=== PATIENT | male | born 1930 | race Caucasian/White ===

== ENCOUNTER → 2017-08-06 | Outpatient (CLI) | payer OTHER, MEDICARE ==
[~2017-08-06] MED LIST: ADVAIR HFA115 MCG/21 INH; ASPIR 8181 MG; CARDURA8 MG PO; CIPRO500 MG PO; CLONIDINE PO; COLACE100 MG PO; DUONEB 2.5-0.5 M3 ML INH; FLAGYL500 MG PO; HYDROCHLOROTH12.5 M1 PO; HYDROCODONE-AP1 EAC6 PO; IMDUR 30 MG TAB30 M1 PO; LISINOPRIL20 MG PO; LOVASTAT10 PO; MULTIVITAMINS PO; NORVASC10 MG PO; OMEPRAZOLE 20 M20 M1 PO; PRINZIDE 20-121 EACH PO; SAW PALMETTO C1 EACH PO; SAW PALMETTO160 MG PO; TEARS NATURALE1 EACH OPHTHALMIC; TYLENOL325 MG PO; VITAMIN C + RO500 MG PO
== END ==
LOC: RAD 09:39
DX: J98.11 Atelectasis (principal); R91.8 Other nonspecific abnormal finding of lung field; M47.894 Other spondylosis, thoracic region; M41.84 Other forms of scoliosis, thoracic region

== ENCOUNTER 2018-02-19 12:36 | Inpatient (IN) | payer OTHER, MEDICARE ==
[~2018-02-19] VITALS: Ht 165.1 cm; Wt 83.5 kg
--- NOTE | ~2018-02-19 | EKG ---
[address] [place] [address] ELECTROCARDIOGRAM REPORT Name: ADITHYA JIMENEZ Room #: 450-P ADM IN M.R.#: [id number] Admission: 02/19/18 Attend Phys: Ilia Camarillo MD Discharge: Date of : [birth year] Report #: [id number] THIS REPORT FOR: //name// [facility] ED Test Date: 2018-02-19 Test Time: 13:40:00 Pat Name: ADITHYA JIMENEZ Department: Room: 450 Gender: M Machine Engineer: KFRIEDT : 1930 Requested By: Dilip Mcmanus Order Number: [id number] MD: Ruddy Pagan Measurements Intervals [place] Rate: 60 P: 22 NE: 63 QRS: -17 QRSD: 94 T: 42 QT: 428 QTc: 428 Interpretive Statements Sinus rhythm Normal tracing Compared to ECG 12/12/2014 11:42:31 Short NE interval now present Low QRS voltage now present Wandering atrial pacemaker no longer present Ventricular premature complex(es) no longer present Electronically Signed On 02-20-2018 8:38:02 ENVIRONMENTAL HEALTH SAFETY ENGINEER by Ruddy Pagan [email or web address] <ELECTRONICALLY SIGNED> By: Ruddy Pagan MD, [facility] 02/20/18 0838 1340 1340 Ruddy Pagan MD, [facility] /EPI
[2018-02-19 12:36] VITALS: BP 136/67
[2018-02-19 13:23] LABS: BASOPHILS 1.4 % (0.0-2.0); EOSINOPHILS 3.5 % (0.0-3.0); HEMATOCRIT 37.9 % (42.0-52.0); HEMOGLOBIN 12.8 gm/dL (14.0-18.0); LYMPHOCYTES 23.5 % (24.0-44.0); MCH 30.8 pg (26.0-34.0); MCHC 33.8 g/dL (28.0-37.0); MONOCYTES 8.3 % (1.0-8.0); PLATELET COUNT 279 thou/uL (150-400); POLYS 63.3 % (36.0-66.0); RBC 4.16 mil/uL (4.50-6.00); RDW 14.5 % (10.5-14.5); WBC 7.9 thou/uL (4.0-11.0)
[2018-02-19 13:27] LABS: CALCIUM 9.2 mg/dL (8.5-10.1); CREATININE 1.2 mg/dL (0.7-1.3); POTASSIUM 4.2 mmol/L (3.5-5.1)
[2018-02-19 14:56] LABS: URINE BILIRUBIN NEGATIVE (Negative); URINE BLOOD NEGATIVE (Negative); URINE CLARITY CLEAR; URINE COLOR YELLOW; URINE GLUCOSE-RANDOM* NEGATIVE (Negative); URINE KETONES NEGATIVE (Negative); URINE LEUKOCYTES-REFLEX NEGATIVE (Negative); URINE NITRITE-REFLEX NEGATIVE (Negative); URINE PROTEIN (DIPSTICK) NEGATIVE (Negative); URINE SPECIFIC GRAVITY 1.015 (1.005-1.035); URINE UROBILINOGEN 0.2 E.U./dl (0.2-1.0)
[2018-02-19 15:55] VITALS: BP 138/74
[2018-02-19 15:58] VITALS: BP 147/74
[2018-02-19 16:35] VITALS: BP 152/79
[2018-02-19] MEDS ORDERED: PROAIR HFA8.5 GM INH (17:14)
[2018-02-19] MEDS ORDERED: SAW PALMETTO160 MG PO (17:17)
[2018-02-19 19:00] VITALS: BP 121/66
[2018-02-20 03:42] VITALS: BP 176/83
[2018-02-20 05:47] LABS: ABSOLUTE NEUTROPHILS 5.5 thou/uL (1.4-8.2); BASOPHILS 0.6 % (0.0-2.0); EOSINOPHILS 0.3 % (0.0-3.0); HEMATOCRIT 38.1 % (42.0-52.0); HEMOGLOBIN 12.7 gm/dL (14.0-18.0); LYMPHOCYTES 9.7 % (24.0-44.0); MCH 30.6 pg (26.0-34.0); MCHC 33.5 g/dL (28.0-37.0); MCV 91.5 fL (80.0-100.0); MONOCYTES 1.4 % (1.0-8.0); PLATELET COUNT 258 thou/uL (150-400); RBC 4.16 mil/uL (4.50-6.00); RDW 14.7 % (10.5-14.5); WBC 6.2 thou/uL (4.0-11.0)
[2018-02-20 05:59] LABS: CALCIUM 9.2 mg/dL (8.5-10.1); CREATININE 1.2 mg/dL (0.7-1.3); MAGNESIUM 1.9 mg/dL (1.8-2.4); POTASSIUM 4.4 mmol/L (3.5-5.1)
[2018-02-20 17:35] VITALS: BP 155/78
[2018-02-20 19:09] VITALS: BP 156/78
[2018-02-21 05:18] VITALS: BP 160/71
[2018-02-21 07:40] VITALS: BP 171/89
[2018-02-21] MEDS ORDERED: ROBAXIN 750 MG750 M1 PO (12:06)
[2018-02-21] MEDS ORDERED: GABAPENTIN 100100 MG PO (12:07)
[2018-02-21] MEDS ORDERED: HYDROCODONE-AP1 EAC6 PO (12:07)
[2018-02-21] MEDS ORDERED: PREDNISONE 10 M10 M1 PO (12:08)
[2018-02-21 12:17] VITALS: BP 171/89
== END 2018-02-21 14:54 | disposition home or self-care (01) | DRG 552 ==
LOC: ER 12:36 → 4W 15:14 → EROBS 15:14 → 4W 16:03
PROVIDERS: Nurse Practitioner; Physician Assistant
DX: M48.061 Spinal stenosis, lumbar region without neurogenic claudication (principal); M54.16 Radiculopathy, lumbar region; E78.00 Pure hypercholesterolemia, unspecified; I10 Essential (primary) hypertension; J44.9 Chronic obstructive pulmonary disease, unspecified; E78.5 Hyperlipidemia, unspecified; I48.2 Chronic atrial fibrillation; G89.29 Other chronic pain; M54.2 Cervicalgia; M51.36 Other intervertebral disc degeneration, lumbar region; G62.9 Polyneuropathy, unspecified; K21.9 Gastro-esophageal reflux disease without esophagitis; N40.0 Benign prostatic hyperplasia without lower urinary tract symptoms; R29.6 Repeated falls; M19.90 Unspecified osteoarthritis, unspecified site; Z96.652 Presence of left artificial knee joint; Z86.73 Personal history of transient ischemic attack (TIA), and cerebral infarction without residual deficits; Z88.0 Allergy status to penicillin; Z87.891 Personal history of nicotine dependence
CPT/HCPCS: 10045; 10047

== ENCOUNTER → 2018-03-06 | Outpatient (CLI) | payer OTHER, MEDICARE ==
[~2018-03-06] MED LIST changes: +GABAPENTIN 100100 MG PO; +PREDNISONE 10 M10 M1 PO; +PROAIR HFA8.5 GM INH; +ROBAXIN 750 MG750 M1 PO
== END ==
LOC: LABMALL 12:35 → CAT 12:35
DX: M47.12 Other spondylosis with myelopathy, cervical region (principal); M25.78 Osteophyte, vertebrae; M43.12 Spondylolisthesis, cervical region; M48.02 Spinal stenosis, cervical region

== ENCOUNTER 2018-03-23 15:58 | Inpatient (IN) | payer OTHER, MEDICARE ==
[~2018-03-23] VITALS: Ht 152.4 cm; Wt 82.6 kg
[2018-03-23 15:59] VITALS: BP 101/52
[2018-03-23] MEDS ORDERED: ASPIR 8181 MG PO (16:12)
[2018-03-23] MEDS ORDERED: CARDURA4 MG PO (16:22)
[2018-03-23 16:58] LABS: ABSOLUTE NEUTROPHILS 6.6 thou/uL (1.4-8.2); BASOPHILS 0.7 % (0.0-2.0); EOSINOPHILS 2.7 % (0.0-3.0); HEMATOCRIT 34.6 % (42.0-52.0); HEMOGLOBIN 11.8 gm/dL (14.0-18.0); LYMPHOCYTES 13.5 % (24.0-44.0); MCHC 34.3 g/dL (28.0-37.0); MCV 90.5 fL (80.0-100.0); MONOCYTES 11.7 % (1.0-8.0); PLATELET COUNT 275 thou/uL (150-400); POLYS 71.4 % (36.0-66.0); RBC 3.82 mil/uL (4.50-6.00); WBC 9.2 thou/uL (4.0-11.0)
[2018-03-23 17:04] LABS: ANION GAP 6 mmol/L (7-16); BUN 21 mg/dL (7-18); CALCIUM 8.9 mg/dL (8.5-10.1); CHLORIDE 96 mmol/L (98-107); CO2 30 mmol/L (21-32); CREATININE 1.2 mg/dL (0.7-1.3); GLUCOSE 109 mg/dL (74-106); POTASSIUM 3.9 mmol/L (3.5-5.1); SODIUM 132 mmol/L (136-145)
[2018-03-23 17:12] LABS: ALBUMIN 3.2 g/dL (3.4-5.0); SGOT 26 U/L (15-37); SGPT 22 U/L (30-65); TOTAL BILIRUBIN 0.5 mg/dL (<0.1-1.0); TOTAL PROTEIN 5.9 g/dL (6.4-8.2); TROPONIN-I <0.06 ng/mL (<0.06)
[2018-03-23 17:42] LABS: URINE CLARITY CLEAR; URINE COLOR YELLOW
[2018-03-23 17:43] LABS: URINE BILIRUBIN NEGATIVE (Negative); URINE BLOOD NEGATIVE (Negative); URINE GLUCOSE-RANDOM* NEGATIVE (Negative); URINE KETONES NEGATIVE (Negative); URINE LEUKOCYTES-REFLEX NEGATIVE (Negative); URINE NITRITE-REFLEX NEGATIVE (Negative); URINE PROTEIN (DIPSTICK) NEGATIVE (Negative); URINE UROBILINOGEN 0.2 E.U./dl (0.2-1.0)
[2018-03-23] MEDS ORDERED: ZESTORETIC 20-1 EAC3 PO (18:03)
[2018-03-23] MEDS ORDERED: LOVASTAT10 PO (18:04)
[2018-03-23] MEDS ORDERED: VITAMINC500 PO (18:05)
[2018-03-23] MEDS ORDERED: STIOLTO RESPIMAT4 GM INH (18:07)
[2018-03-23] MEDS ORDERED: CLONIDINE0.1 PO (18:08)
[2018-03-23] MEDS ORDERED: TRAMADOL 50 MG50 MG PO (18:19)
[2018-03-23] MEDS ORDERED: SYNTHROID50 MCG PO (18:22)
--- NOTE | 2018-03-23 18:42 | NUR ---
PT'S DAUGHTER REPORTS THAT PT HAS BECOME MORE WEAK IN THE LEGS SINCE . DAUGHTER REPORTS THAT PT IS ABLE TO WALK A FEW STEPS THEN HAS TO SIT DOWN DUE TO WEAKNESS. DAUGHTER REPORTS THAT PT FALLS BACK INTO HER WHEN WALKING TO THE BATHROOM. PT AND DAUGHTER HAVE REPORTED INCREASED URINARY INCONTINENCE THAT HAS BECOME MORE BOTHERSOME. PT STATES THAT UROLOGIST WAS NOT ABLE TO GIVE THEM A SATISFACTORY SOLUTION TO THE URINARY FREQUENCY OR INCONTINENCE. DAUGHTER IS REQUESTING TO HAVE A ETIENNE CATHETER BEING PERMANETLY PLACED. EXPLAINED THE REASONS WHY THAT IS DISCOURAGED. PT AND FAMILY NEED MORE TEACHING ON THIS. DAUGHTER DOES NOT WANT PT TO GO INTO THE LONGTERM, SO SHE AND PT'S HAVE BEEN DOING ALL THE PT'S CARE AT HOME. HOME HEALTH IS TO START COMING TO THEIR HOME ON FRIDAY.
[2018-03-23 19:29] VITALS: BP 146/71
[2018-03-23 20:26] VITALS: BP 157/76
--- NOTE | 2018-03-24 01:58 | NUR ---
PATIENTS CARES WERE ASSUMED AT APPROX 2030. PATIENT WAS ASSESSED MEDS WERE PASSED AND ORDERS WERE CARRIED OUT. PATIENT DOES C/O KNEE AND NECK PAIN AND RATES IT 8/10. PAIN MEDS WERE GIVEN. PT AND OT CONSULTS TO ASSESS THIS PATIENT. HE LIVES AT HOME WITH HIS AND DAUGHTER. HE IS UNABLE TO FEED HIMSELF DUE TO NO FEELINGS IN HIS HANDS AND FINGERS. UNABLE TO GET TO THE BATHROOM FAST ENOUGH DUE TO HIS PAINFUL LEGS. FAMILY CALLED AFTER PATIENT GOT TO THE FLOOR AND WAS ADMITTED. THEY ARE NOT HAPPY BECAUSSE THEY BROUGHT HIM HERE TO HAVE A ETIENNE PLACED AND BRING HIM BACK HOME. CONSULT PLACED FOR AVIONICS MANAGER FOR PLACEMENT,HOWEVER FAMILY DOES NOT WANT TO PLACE HIM THEY WANT HIM BACK AT HOME. HOURLY ROUNDING DON,BED IS IN LOWLOCKED POSITION. BED ALARM IS ON. IS ON.
[2018-03-24 03:31] VITALS: BP 168/87
[2018-03-24 03:58] LABS: CALCIUM 8.7 mg/dL (8.5-10.1)
[2018-03-24 08:20] VITALS: BP 144/68
--- NOTE | 2018-03-24 08:36 | EKG ---
[address] [address] ELECTROCARDIOGRAM REPORT Name: ADITHYA JIMENEZ Room #: 462-P [facility] M.R.#: [id number] Admission: 03/23/18 Attend Phys: Paulo Dueñas MD Discharge: Date of : [birth year] Report #: [id number] THIS REPORT FOR: //name// [facility] ED Test Date: 2018-03-23 Test Time: 16:56:39 Pat Name: ADITHYA JIMENEZ Department: Room: 462 Gender: M Steam Plant Control Room Operator: earnest : 1930 Requested By: Adrian Freire Order Number: [id number] MD: Ruddy Pagan Measurements Intervals [place] Rate: 62 P: 39 [place]: 203 QRS: -23 QRSD: 94 T: 48 QT: 409 QTc: 416 Interpretive Statements Sinus rhythm Inferior infarct, old Compared to ECG 02/19/2018 13:40:00 No significant change was found Electronically Signed On 03-24-2018 8:36:08 DESKTOP OPERATOR by Ruddy Pagan [email or web address] <ELECTRONICALLY SIGNED> By: Ruddy Pagan MD, [facility] 03/24/18 0836 1656 55 Ruddy Pagan MD, [facility] /EPI
--- NOTE | 2018-03-24 10:32 | NUR ---
cm visited with pt at bedside, nurse reposition pt in bed. cecilia is a & o x 3 with forgetfullness, pleasant, makes his needs know . intro to cm dcp, transition of care and home health. " just tired and going to home,that is want in er told me. my daughter felipe is my nurse at home. live in house with and daughter, have steps to enter and stairs inside. use walker and now need to use wc because knees are weak. manage own medication. not driving. rest better at home, this bed is uncomfortable and slide down all the time. working on private duty and have [facility] home health, by daughter sets it up. i will be going home"/pt. cm and television inspector reposition pt again in bed with legs raise and hob up. will cont following as needed for dc needs. referral sent to [facility]. cm tried calling and daughter, unable to leave message rt mail box is full.
--- NOTE | 2018-03-24 11:07 | NUR ---
DP FAXED REFERRAL TO [facility], PATIENT LIKELY TO DC TODAY SO HE WILL NEED TO BE SEEN TOMORROW. DP WILL CALL TO ENSURE DELIVERY OF REFERRAL. CM WILL FOLLOW.
[2018-03-24] MEDS ORDERED: A THRU Z SELEC1 EAC6 PO (12:44)
[2018-03-24] MEDS ORDERED: CARDURA4 MG PO (12:44)
[2018-03-24] MEDS ORDERED: ROBAXIN 750 MG750 M1 PO (12:44)
[2018-03-24] MEDS ORDERED: FLOMAX0.4 MG PO (12:44)
[2018-03-24 14:18] VITALS: BP 144/68
--- NOTE | 2018-03-24 14:40 | NUR ---
CM CALLED [facility] AND INQUIRED ABOUT PT'S HOME HEALTH SERVICES. THEY INDICATED THAT PT HAD PT AND OT AND WAS CURRENT WITH THEM. CM INDICATED THAT PHYSICIAN WAS ORDERING PT, OT, ST, AND NURSING HH SERVICES FOR PT'S DC TODAY. THEY INDICATED THAT PT WAS SECHEDULED FOR PT TOMORROW AND THAT THEY WOULD ASSESS FOR ADDITIONAL SERVICES THEN. PT IS TO DISCHARGE WITH THE ETIENNE CATHETER. SHELLEY CALLED AND SPOKE WITH PT'S DTR PRISCILA. SHE IS AWARE AND AGREEABLE WITH DC HOME THIS DAY. SHE INDICATED THAT SHE AND HER MOTHER WILL PICK PT UP THIS AFTERNOON AND WILL CALL [facility] TO TRANPORT PT INTO THE HOME. CM FA[facility]ED ORDERS TO [facility]. NO OTHER CM INTERVENTION INDICATED AT THIS TIME. CASE CLOSED.
[2018-03-24 15:45] VITALS: BP 162/75
--- NOTE | 2018-03-24 17:01 | NUR ---
Received pt this am with a Weiner catheter on, with light yellow urine draining. Pt has bad knees as verbalized by the pt, pt needed to be boosted up several times during the day. PT worked with the pt and was able to transfer him to the wheelchair, pt stayed there for a few hours. Full bath was given to the pt, as requested by the family as well. Spoke to his daughter and she had mentioned that the they would like for his FC to remain as they would like to resolve the issue of his incontinence and have him stay at home with them vs going to a home. CM worked on the case and mentiond he is goping home [facility]. FC maintained , will educate the family on the care. IV removed, awaiting for daughter and to come over and pick the pt up. DC instructions given to the family.
== END 2018-03-24 19:03 | disposition home health service (06) | DRG 725 ==
LOC: ER 15:58 → EROBS 18:33 → 4W 20:15 → ENTRNSPT 03-24 18:45 → 4W 03-24 19:03
PROVIDERS: Nurse Practitioner; Nurse Practitioner Family; ADMIT Internal Medicine
DX: N40.1 Benign prostatic hyperplasia with lower urinary tract symptoms (principal); E43 Unspecified severe protein-calorie malnutrition; I10 Essential (primary) hypertension; E78.5 Hyperlipidemia, unspecified; I48.0 Paroxysmal atrial fibrillation; N39.498 Other specified urinary incontinence; G62.9 Polyneuropathy, unspecified; G89.29 Other chronic pain; M54.10 Radiculopathy, site unspecified; K21.9 Gastro-esophageal reflux disease without esophagitis; R22.1 Localized swelling, mass and lump, neck; L89.151 Pressure ulcer of sacral region, stage 1; M25.562 Pain in left knee; R54 Age-related physical debility; M54.9 Dorsalgia, unspecified; M48.00 Spinal stenosis, site unspecified; J44.9 Chronic obstructive pulmonary disease, unspecified; E78.00 Pure hypercholesterolemia, unspecified; Z86.73 Personal history of transient ischemic attack (TIA), and cerebral infarction without residual deficits; Z79.82 Long term (current) use of aspirin; Z79.899 Other long term (current) drug therapy; Z88.0 Allergy status to penicillin; Z87.891 Personal history of nicotine dependence
CPT/HCPCS: 10040

== ENCOUNTER 2019-01-01 16:15 | Inpatient (IN) | payer OTHER, MEDICARE ==
[~2019-01-01] VITALS: Ht 165.1 cm; Wt 74.6 kg
[~2019-01-01 16:15] MED LIST changes: +A THRU Z SELEC1 EAC6 PO; +ANORO ELLIPTA1 EACH INH; +ASPIR 8181 MG PO; +CARDURA4 MG PO; +CLONIDINE0.1 PO; +FLOMAX0.4 MG PO; +HYDRALAZINE 2525 MG PO; +HYDROCODON-ACE1 EA11 PO; +HYDROCODON-ACE1 EAC7 PO; +IPRAT-ALBUT 0.5-3 ML INH; +LASIX 40 MG TAB40 M2 PO; +LOPRESSOR50 PO; +MELATONIN3 MG PO; +MUCINEX1200 MG PO; +POTASSIUM20 PO; +SENNA8.6 MG PO; +STIOLTO RESPIMAT4 GM INH; +SYNTHROID50 MCG PO; +TRAMADOL 50 MG50 MG PO; +VITAMINC500 PO; +VOLTAREN GEL 1100 G1 TOP; +ZESTORETIC 20-1 EAC3 PO
[2019-01-01 16:16] VITALS: BP 132/83
[2019-01-01] MEDS ORDERED: ISOSORBIDE MONO30 M1 PO (16:36)
[2019-01-01] MEDS ORDERED: GABAPENTIN 100100 MG PO (16:36)
[2019-01-01] MEDS ORDERED: SUPER THERAVIT1 EACH PO (16:36)
[2019-01-01] MEDS ORDERED: MIRALAX119 GM PO (16:36)
[2019-01-01] MEDS ORDERED: VITAMIN C1000 MG PO (16:36)
[2019-01-01] MEDS ORDERED: ASA81BEC PO (16:36)
[2019-01-01] MEDS ORDERED: COMBIVENT INH (16:37)
[2019-01-01] MEDS ORDERED: ANORO ELLIPTA1 EACH INH (16:37)
[2019-01-01] MEDS ORDERED: FLOMAX0.4 MG PO (16:37)
[2019-01-01] MEDS ORDERED: VOLTAREN GEL 1100 G1 TOP (16:38)
[2019-01-01] MEDS ORDERED: SYNTHROID75 MCG PO (16:38)
[2019-01-01] MEDS ORDERED: MUCINEX D ER 11 EACH PO (16:38)
[2019-01-01] MEDS ORDERED: HYDRALAZINE 5050 MG PO (16:38)
[2019-01-01] MEDS ORDERED: MELATONIN3 M1 PO (16:39)
[2019-01-01] MEDS ORDERED: LASIX 40 MG TAB40 MG PO (16:39)
[2019-01-01] MEDS ORDERED: POTASSIUM20 PO (16:39)
[2019-01-01] MEDS ORDERED: SENNA PLUS TAB1 EACH PO (16:39)
[2019-01-01] MEDS ORDERED: PROAIR HFA8.5 GM INH (16:40)
[2019-01-01] MEDS ORDERED: NORCO 5-325 TA1 EAC1 PO (16:40)
[2019-01-01] MEDS ORDERED: OMEPRAZOLE MAGN20 MG PO (16:40)
[2019-01-01 17:29] LABS: HEMATOCRIT 30.6 % (42.0-52.0); HEMOGLOBIN 10.1 gm/dL (14.0-18.0); MCH 28.3 pg (26.0-34.0); MCHC 32.8 g/dL (28.0-37.0); MCV 86.3 fL (80.0-100.0); PLATELET COUNT 438 thou/uL (150-400); RBC 3.55 mil/uL (4.50-6.00); RDW 14.1 % (10.5-14.5); WBC 10.1 thou/uL (4.0-11.0)
[2019-01-01 17:40] LABS: CALCIUM 8.8 mg/dL (8.5-10.1); CREATININE 1.4 mg/dL (0.7-1.3); POTASSIUM 4.2 mmol/L (3.5-5.1)
[2019-01-01 17:46] LABS: ALBUMIN 2.7 g/dL (3.4-5.0); TOTAL BILIRUBIN 0.3 mg/dL (<0.1-1.0); TOTAL PROTEIN 6.1 g/dL (6.4-8.2)
[2019-01-01 18:15] LABS: ABSOLUTE NEUTROPHILS 7.7 thou/uL (1.4-8.2)
[2019-01-01 18:16] LABS: ANISOCYTOSIS 1+; BURR CELLS 1+
[2019-01-01 19:02] LABS: URINE BLOOD TRACE (Negative); URINE CLARITY CLEAR; URINE COLOR YELLOW; URINE GLUCOSE-RANDOM* NEGATIVE (Negative); URINE KETONES NEGATIVE (Negative); URINE LEUKOCYTES-REFLEX TRACE (Negative); URINE NITRITE-REFLEX NEGATIVE (Negative); URINE PROTEIN (DIPSTICK) NEGATIVE (Negative); URINE UROBILINOGEN 0.2 E.U./dl (0.2-1.0)
[2019-01-01 19:05] LABS: ICTOTEST (BILI CONFIRMATORY) Negative (Negative); URINE BILIRUBIN NEGATIVE (Negative)
[2019-01-01 20:51] LABS: PHOSPHORUS 3.9 mg/dL (2.5-4.9)
[2019-01-01 22:15] VITALS: BP 121/79
[2019-01-01 22:47] VITALS: BP 130/98
[2019-01-01 23:02] VITALS: BP 153/101
[2019-01-02 00:27] VITALS: BP 176/106
[2019-01-02] MEDS ORDERED: ASA81BEC PO (01:58)
[2019-01-02] MEDS ORDERED: VITAMIN C1000 MG PO (01:58)
[2019-01-02] MEDS ORDERED: ISOSORBIDE MONO30 M1 PO (02:00)
[2019-01-02] MEDS ORDERED: ANORO ELLIPTA1 EACH INH (02:04)
[2019-01-02] MEDS ORDERED: POTASSIUM20 PO (02:06)
[2019-01-02] MEDS ORDERED: FUROSEMIDE 40 M40 MG PO (02:08)
[2019-01-02] MEDS ORDERED: PROAIR HFA8.5 GM INH (02:10)
[2019-01-02] MEDS ORDERED: IPRAT-ALBUT 0.5-3 ML INH (02:12)
[2019-01-02] MEDS ORDERED: REFRESH CLASSI1 EACH OPHTHALMIC (02:13)
[2019-01-02] MEDS ORDERED: MUCINEX1200 MG PO (02:15)
[2019-01-02] MEDS ORDERED: VOLTAREN GEL 1100 G1 TOP (02:19)
[2019-01-02] MEDS ORDERED: NORCO 5-325 TA1 EAC1 PO (02:20)
[2019-01-02] MEDS ORDERED: HYDRALAZINE 5050 MG PO (02:22)
[2019-01-02 04:10] VITALS: BP 150/88
[2019-01-02 07:22] VITALS: BP 114/65
--- NOTE | 2019-01-02 07:31 | NUR ---
PATIENT IS ALERT TO PERSON SITUATION AND PLACE. PATIENT HAS A ETIENNE. PATIENT HAS A WOUND ON COCCYX. PATIENT IS OCCATIONALY A JUNCTIONAL ON TELE. PATIENT IS ROOM AIR. PATIENT IS THICKEN LIQUIDS NECTER, THIN WATER. PATIENT IS RESTING COMFORTABLY IN BED. WCM. PATIENTS PAIN IS TREATED WITH PAIN MEDICATION.
[2019-01-02 07:52] LABS: HEMATOCRIT 31.7 % (42.0-52.0); HEMOGLOBIN 10.4 gm/dL (14.0-18.0); MCH 28.2 pg (26.0-34.0); MCHC 32.8 g/dL (28.0-37.0); RBC 3.68 mil/uL (4.50-6.00); RDW 14.2 % (10.5-14.5); WBC 11.6 thou/uL (4.0-11.0)
[2019-01-02 08:07] LABS: ALBUMIN 2.6 g/dL (3.4-5.0); CALCIUM 9.1 mg/dL (8.5-10.1); CREATININE 1.4 mg/dL (0.7-1.3); TOTAL BILIRUBIN 0.8 mg/dL (<0.1-1.0); TOTAL PROTEIN 6.2 g/dL (6.4-8.2)
[2019-01-02 08:32] LABS: FOLIC ACID 14.9 ng/mL (8.6-58.9)
--- NOTE | 2019-01-02 16:02 | HC ---
Formerly [facility] [place] [address] CONSULTATION Name: ADITHYA JIMENEZ Room #: 353-P ADM IN M.R.#: [id number] Admission: 01/01/19 Attend Phys: Caro Carmichael MD Discharge: Date of : [birth year] Report #: [id number] THIS REPORT FOR: //name// CC: Elise Carmichael DATE OF SERVICE: 01/02/2019 ATTENDING PHYSICIAN: Caro Carmichael MD REASON FOR EVALUATION: Readmission with suspected sepsis, perhaps secondary to pneumonitis or has had more recent episode of complicated UTI with extended spectrum beta lactamase producing organism. HISTORY OF PRESENT ILLNESS: Chart reviewed, patient examined. This is an 88-year-old with a history of COPD, admitted through the Emergency Room with complaints of fairly profound encephalopathy with progressive weakness. It is notable that he was recently hospitalized and diagnosed with a complicated urinary tract infection due to multiple resistant organism, did receive roughly 10-day treatment of parenteral therapy that was continued as an outpatient, apparently had a history of septicemia as well. At this point, he is alert, although he is quite distressed. He complains of severe sacral type pain. He has had a bit of a cough. He states he cannot really eat due to lack of strength in his arms, evaluation including chest x-ray raised question of possible right lower lobe infiltrate, although CT did not confirm that, felt not to have any abnormalities in the chest, abdomen or pelvis that were acute nature. Procalcitonin was 0.05. Lactic acid of 0.7. Electrolytes were otherwise unremarkable. Albumin of 2.7. Creatinine of 1.4. LFTs unremarkable. CBC showed a borderline white count of 10.1. He is mildly anemic. Urinalysis was generally unremarkable. He was empirically started on therapy with levofloxacin and vancomycin. ALLERGIES: LISTED TO PENICILLINS, SOUNDS LIKE A POSSIBLE TYPE 1 REACTION, JACK INHIBITORS AND HYDROCHLOROTHIAZIDE. CURRENT MEDICATIONS: Include levofloxacin, tamsulosin, enoxaparin, vancomycin, furosemide, aspirin, isosorbide mononitrate, guaifenesin, pantoprazole, levothyroxine, ____ albuterol inhaler, hydrocodone, p.r.n. analgesics. PAST MEDICAL HISTORY: Includes hypertension, high cholesterol, TIA, COPD, atrial fibrillation, previous history of pulmonary histoplasmosis, longstanding issues with lower back pain, previous surgeries, spinal stenosis of the cervical site as well, arthritis, peripheral neuropathy. SOCIAL HISTORY: Nonsmoker, no ethanol, no illicit drug use. [address] [address] CONSULTATION Name: ADITHYA JIMENEZ Room #: 353-P [facility]#: [id number] Admission: 01/01/19 Attend Phys: Caro Carmichael MD Discharge: Date of : [birth year] Report #: [id number] FAMILY HISTORY: Noncontributory. REVIEW OF SYSTEMS: As noted above. PHYSICAL EXAMINATION: GENERAL: He is in moderate to marked distress secondary to discomfort and what he describes as pain in his sacral site, does have some respiratory discomfort as well with tachypnea. VITAL SIGNS: Temperature 98.4, T-max is 100.7, pulse 98, respirations 18, blood pressure 118/65. SKIN: Warm, dry, no rashes. HEENT: Normocephalic. NECK: Mildly decreased range of motion. There is no meningismus. LUNGS: Few scattered coarse breath sounds. HEART: Borderline tachycardic, irregular. I do not appreciate murmur. ABDOMEN: Mildly distended, soft. There are no overt peritoneal signs. Sacral site has an abrased area with some desquamation. There is no true wound. There is a moderate degree of inflammation. LABORATORY DATA: In a.m., electrolytes: Sodium 137, potassium 4.0, chloride 101, bicarbonate is 27, anion gap of 9, BUN and creatinine 32 and 1.4. LFTs unremarkable. Albumin 2.6. Total protein 6.2, estimated GFR 48. CBC: White count 11.6, H and H 10.4 and 31.7, platelets of 395. Procalcitonin 0.05. TSH is borderline elevated at 3.794. CT abdomen, chest and pelvis was otherwise unremarkable for acute process. Urinalysis unremarkable. ASSESSMENT: Encephalopathy with progressive weakness and the patient was recently hospitalized, not overtly evident that he has got a focus of pyogenic infection at this point, although given his recent history and certainly at risk for infectious complications, we will await those blood cultures since he previously had septicemia. Continue empiric therapy. We have to monitor expectantly, do worry about adverse drug effects, particularly quinolones. Continue to offload his sacrum that may give him a measure of relief. We will monitor expectantly. <ELECTRONICALLY SIGNED> By: Omi Sims MD 01/02/19 1602 0935 1240 Omi Sims MD /nt
[2019-01-02 16:43] VITALS: BP 136/79
--- NOTE | 2019-01-02 17:26 | NUR ---
ASSUMED CARE OF PATIENT AT 0700. VSS. ALERT AND ORIENTED X 3. SOME BOUTS OF CONFUSION. NSR. ROOM AIR. PATIENT GIVEN NECTAR THICK LIQUIDS TODAY UNTIL DAUGHTER ARRIVED AND SHE GAVE PATIENT SMALL SIPS OF NORMAL CONSISTENCY WATER. CONTINUING TO MONITOR
[2019-01-02 20:29] VITALS: BP 152/82
[2019-01-03 03:42] VITALS: BP 133/84
--- NOTE | 2019-01-03 04:42 | NUR ---
PATIENT IS ALERT TO SELF SITUATION AND PLACE. CONFUSED WITH TIME. PATIENT IS [place]. PATIENT IS NONAMBULATORY. PATIENT IS Q2TURN. PATIENT HAS A ETIENNE. PATIENT HAS CHRONIC PAIN TREATED WITH PAIN MEDICATION. PATIENT IS NSR TO JUNCTIONAL ON TELE. PATIENT IS ROOM AIR. PATIENT HAS A WOUND BARRIER CREAM APPLIED. PATIENT IS NECTER THICK LIQUIDS. PATIENT IS RESTING COMFORTABLY IN BED. WCM. PATIENT IS PROGRESSING TO GOALS.
[2019-01-03 08:00] VITALS: BP 154/89
--- NOTE | 2019-01-03 11:21 | EKG ---
[address] [address] ELECTROCARDIOGRAM REPORT Name: ADITHYA JIMENEZ Room #: 353-P ADM IN M.R.#: [id number] Admission: 01/01/19 Attend Phys: Caro Carmichael MD Discharge: Date of : [birth year] Report #: [id number] THIS REPORT FOR: //name// [facility] ED Test Date: 2019-01-01 Test Time: 17:50:12 Pat Name: ADITHYA JIMENEZ Department: Room: 353 Gender: M It Audit Manager: LUZ : 1930 Requested By: Adrian Freire Order Number: [id number] MD: Ras Thompson Measurements Intervals [place] Rate: 98 P: 239 DC: 112 QRS: -42 QRSD: 89 T: 31 QT: 338 QTc: 432 Interpretive Statements Ectopic atrial rhythm Borderline short DC interval Abnormal R-wave progression, late transition Inferior infarct, old Compared to ECG 03/23/2018 16:56:39 Ectopic atrial rhythm now present Sinus rhythm no longer present Myocardial infarct finding still present Electronically Signed On 01-03-2019 11:21:36 EMPLOYEE WELFARE MANAGER by Ras Thompson [email or web address] <ELECTRONICALLY SIGNED> By: Ras Thompson MD 01/03/19 1121 1750 1750 Ras Thompson MD /EPI
[2019-01-03 15:46] VITALS: BP 134/81
--- NOTE | 2019-01-03 18:18 | NUR ---
pt knows his name and he can follow commands, but pt is confused at time, pt needs help ADL and change position, pt is continuing iv abx , NS at 75ml/hr,and pain management, pt's vs and o2sat are stable at this time.
[2019-01-03 19:35] VITALS: BP 113/68
--- NOTE | 2019-01-04 04:06 | NUR ---
PATIENT IS ALERT AND ORIENTED OCCATIONALY CONFUSED ON TIME. PATIENT HAS A TEIENNE. PATIENT IS Q2TURN. PATIENT HAS A WOUND ON COCCYX BARRIER CREAM APPLIED. PATIENT PAIN IS TREATED WITH PAIN MEDICATION. PATIENT WAS GIVEN MIRALAX. PATIENT IS ACCELERATED JUNCTIONAL OCCATIONAL PAUSES. AT 0017 PATIENT WAS BIGEMINY. PATIENT IS ROOMAIR. PATIENT HAD A BATH THIS SHIFT. WCM. PATIENT IS RESTING COMFORTABLY IN BED.
[2019-01-04 04:39] VITALS: BP 171/99
[2019-01-04 06:47] LABS: HEMATOCRIT 27.3 % (42.0-52.0); MCH 28.5 pg (26.0-34.0); MCHC 32.9 g/dL (28.0-37.0); MCV 86.5 fL (80.0-100.0); RBC 3.15 mil/uL (4.50-6.00); RDW 14.3 % (10.5-14.5); WBC 10.4 thou/uL (4.0-11.0)
[2019-01-04 07:01] LABS: CREATININE 1.5 mg/dL (0.7-1.3); POTASSIUM 3.8 mmol/L (3.5-5.1)
[2019-01-04 08:10] VITALS: BP 173/103
--- NOTE | 2019-01-04 10:26 | NUR ---
ASSESSMENT: CM REVIEWED CHART AND MET WITH PATIENT AT THE BEDSIDE. PT IS A LTC RESIDENT FROM [facility] WHO WAS RECENTLY ON THEIR SNF UNIT DUE TO IV ANBX. PT WAS ADMITTED DUE TO ENCEPHALOPATHY/HCAP. PT USES A WHEELCHAIR FOR AMBULATION. CM SPOKE WITH JONAH IN ADMISSIONS [facility] TO UPDATE WELL FAXED UPDATED CLINICAL. CM ALSO SPOKE WITH PATIENTS DAUGHTER PRISCILA. PLANS ARE FOR PATIENT TO RETURN TO [facility] ONCE MEDICALLY STABLE. CM WILL CONTINUE TO FOLLOW TO ASSIST NEEDED.
[2019-01-04 16:26] VITALS: BP 135/93
--- NOTE | 2019-01-04 17:48 | NUR ---
SUMMARY: PATIENT AWAKE ON AND OFF DURING THE DAY. VITALS STABLE. VERY HARD OF HEARING AND HEAERING AIDES NOT WORKING VERY WELL. TOLERATING DIET WELL W/O NAUSEA. WILL CONTINUE WITH POC.
--- NOTE | 2019-01-05 03:15 | NUR ---
Patient making slow progress towards outcome goals. Oxygenation optimal om room air. Very hard of hearing/headphones on. Aspiration precautions. IVFluids infusing. Vital signs and rhythm stable. Buttocks area excoriated, zguard applied.
[2019-01-05 05:05] VITALS: BP 171/101
[2019-01-05 08:13] VITALS: BP 182/121
--- NOTE | 2019-01-05 10:42 | NUR ---
WOUND CARE F/U sacral area more excoriated, greg, w/ small open areas, area pinkish red, shearing more in bed, encouraged pt to lay on side more, off loading, pt cooperative, bell staff and assistant professor of nursing present, aware of recommendations recommendations: cont w/ zguard cover w/ silicone border sacral dressing, change daily and prn
--- NOTE | 2019-01-05 13:01 | NUR ---
ON-GOING ASSESSMENT: CM REVIEWED CHART AND SPOKE WITH ATTENDING. PT IS SLOWLY PROGRESSING TOWARDS DISCHARGE GOALS. PT IS NOT MEDICALLY STABLE FOR DISCHARGE TODAY. CM NOTIFIED LIASON AT [facility]. CM WILL CONTINUE TO FOLLOW TO ASSIST NEEDED.
[2019-01-05 14:00] VITALS: BP 125/82
--- NOTE | 2019-01-05 16:02 | NUR ---
patient was confused and a little aggitated this morning. patient was hurting of pain of his bottom sore. a patch was placed over with cream. patient has been given pain medications to reduce the pain. pain is doing better. daughter and has came into the room. Blood pressure was running high all morning. patient has a hard time of hearing. daughter brought in extra hearing aids for the patient. patient is less aggressive and more with it this afternoon. patient has not been eating because he really dislikes the thickend food or water. patient feels tired and out of energy. patient needs to be off the sore on his bottom. patient has had no BM for this morning. Patient has been urinating plenty today.
[2019-01-05 19:49] VITALS: BP 151/87
[2019-01-06 04:00] VITALS: BP 172/104
[2019-01-06 05:04] LABS: HEMATOCRIT 30.6 % (42.0-52.0); MCH 28.1 pg (26.0-34.0); MCHC 32.8 g/dL (28.0-37.0); MCV 85.7 fL (80.0-100.0); RBC 3.57 mil/uL (4.50-6.00); RDW 14.5 % (10.5-14.5); WBC 8.6 thou/uL (4.0-11.0)
[2019-01-06 05:10] LABS: CALCIUM 9.5 mg/dL (8.5-10.1); CREATININE 1.4 mg/dL (0.7-1.3); MAGNESIUM 1.7 mg/dL (1.8-2.4); POTASSIUM 3.8 mmol/L (3.5-5.1)
--- NOTE | 2019-01-06 06:01 | NUR ---
SLEPT MOST OF SHIFT. REMAINS ORIENTED X3 TO PERSON, SITUATION, AND PLACE. FORGETFUL. CONTINUALLY CALLS OUT WANTING TO GET UP AND GET DRESSED TO BE READY WHEN HIS GETS HERE. REORIENTED TO TIME. PAIN MEDICATION GIVEN PRN FOR COMPLAINTS OF NECK PAIN WITH NOTED RELIEF. WORKING ON GOALS AND PLAN OF CARE FOR NOC. PROGRESSING SLOWLY TOWARDS DISCHARGE GOALS.
[2019-01-06 08:16] VITALS: BP 164/107
[2019-01-06] MEDS ORDERED: NORCO 5-325 TA1 EAC1 PO (11:46)
[2019-01-06] MEDS ORDERED: IMDUR 30 MG TAB30 M1 PO (11:46)
[2019-01-06] MEDS ORDERED: ACETAMINOPHEN325 M1 PO (11:46)
[2019-01-06] MEDS ORDERED: DOXYCYCLINE HYC50 MG PO (11:46)
--- NOTE | 2019-01-06 12:31 | NUR ---
WOUND CARE F/U assisted w/ wound care w/ engineer technical staffCIARAN TELLEZ, sacral area less greg, pt cooperative, encouraged to off load more and lay on side for pressure relief, verbal understanding. see process intervention for wound details. RECOMMENDATION; cont current tx w/ zguard and sacral border silicone tracig
--- NOTE | 2019-01-06 13:17 | NUR ---
pt daughter concerned about pt being discharged and still being confused and possibly still having uti. paged dr washington and asked him to reach out to daughter. he states he will
--- NOTE | 2019-01-06 13:22 | NUR ---
DISCHARGE ORDERS COMPLETED. PATIENT DISCHARGING TO [facility]. CHART COPY COMPLETED PER DIRECTOR FOOD SAFETY. DISCHARGE ORDERS AND SUMMARY FAXED TO JONAH [facility] ADMISSIONS, VERIFIED RECEIVED. SECURE TRANSPORT TO TRANSPORT PATIENT TO [facility] PER JONAH 1600 HOURS. CALL PLACED TO MARISA FRANCOIS TO NOTIFY, NO ANSWER AND NO VOICEMAIL AVAILABLE. UNIT NOTIFIED OF TRANSPORTATION TIME AND CONTACT NUMBER FOR REPORT PROVIDED. UNIT SW AWARE.
--- NOTE | 2019-01-06 15:06 | NUR ---
ON-GOING ASSESSMENT: PT HAD ORDERS TO DISCHARGE TO SNF TODAY. CM RECEIVED A CALL FROM BEDSIDE RN STATING THAT PATIENTS DAUGHTER IS APPEALING THE PATIENTS DISCHARGE. CM REACHED OUT TO PATIENTS DAUGHTER WHO STATES SHE IS APPEALING THE DISCHARGE STATING SHE IS NOT COMFORTABLE WITH HER FATHER GOING BACK TO [facility] WITH A CATHETER. CM ASKED IF CM COULD HAVE ATTENDING REACH OUT TO HER. SHE STATES SHE ALREADY TALKED TO HIM AND SHE IS APPEALING THE DISCHARGE AND CALLED THE MEDICARE APPEAL #. CM REACHED OUT TO DR. KIM TO NOTIFY HIM. CM ALSO NOTIFIED LENS FINISHER TO CANCEL DISCHARGE IT IS BEING APPEALED. CM REACHED OUT TO MEDICARE APPEAL # [phone] TO SEE IF THEY NEED ANYTHING AT THIS TIME FROM CM. CM NOTIFIED BEDSIDE RN THAT PT IS NOT DISCHARGING TODAY DUE TO THE APPEAL. CM WILL CONTINUE TO FOLLOW TO ASSIST NEEDED.
[2019-01-06 15:55] VITALS: BP 130/99
[2019-01-06 19:58] VITALS: BP 148/95
[2019-01-07 04:09] VITALS: BP 119/77
--- NOTE | 2019-01-07 08:11 | NUR ---
PATIENT IS ALERT TO SELF AND PLACE. OCCATIONALLY MORE CONFUSED BUT IS REDIRECTABLE. PATIENT IS [place]. PATIENT IS Q2TURN. PATIENT HAS A ETIENNE PLAN AT THIS TIME IS TO DC WITH ETIENNE AND SEE OUTPATIENT UROLOGY. DAUGHTER IS NOT AGREEABLE TO THIS AND IS CONTESTING THE DISCHARGE WITH MEIDCAID. PATIENTS PAIN IS CONTROLLED WITH HOME PAIN MEDS. PATIENT IS ROOM AIR. PATIENT HAD A SMALL SEAR BM ON THE 2ND SO PATIENT NEEDS TO HAVE BM. MIRALAX GIVEN. WILL INFORM PROVIDER IF NO OUTCOME TODAY. PATIENT IS NSR ON TELE. PATIENT IS NECTER THICK. ENCOURAGE PO INTACK. PATIENT IS RESTING COMFORTABLY IN BED. WCM. PATIENT IS PROGRESSING TO GOALS.
[2019-01-07 09:03] VITALS: BP 165/105
[2019-01-07 13:47] VITALS: BP 110/70
--- NOTE | 2019-01-07 14:35 | NUR ---
ON-GOING ASSESSMENT: CM REVIEWED CHART. CM ATTEMPTED TO CONTACT THE MEDICARE APPEALS # ([place]) [phone] AND LEFT A VM TO GET AN UPDATE ON THE STATUS OF THE APPEAL, CASE#[id number]. CM CONTACTED PATIENTS DAUGHTER PRISCILA AND SHE STATES SHE IS UPSET AND APPEALING BECAUSE SHE DOES NOT WANT HER FATHER TRANSFERED TO A SNF WITH A CATHETER AND IS WORRIED IF THEY REMOVE IT AT A SNF HE WILL BECOME SEPTIC AND SHE WANTS HIS CATHETER TO BE ABLE TO BE REMOVED AT A HOSPITAL IN [place] WHERE HE CAN BE MONITORED FOR A WHILE. CM RELAYED DAUGHTERS CONCERN TO THE PHYSICIAN. DAUGHTER EXPRESSED SHE WOULD BE HAPPY WITH HIM EVEN TRANSFERING TO [facility] TO HAVE CATHETER REMOVED. DAUGHTER STATING SHE IS COMFORTABLE WITH PATIENT STAYING AT [facility] BUT WANTS HIS CATHETER REMOVED. CM REACHED OUT AND NOTIFIED ATTENDING. WE ARE WAITING ON THE DECISION FOR THE MEDICARE APPEAL FOR DISCHARGE AT THIS TIME. CM WILL CONTINUE TO FOLLOW TO ASSIST NEEDED.
[2019-01-07 16:09] VITALS: BP 118/88
--- NOTE | 2019-01-07 17:28 | NUR ---
pt is A&OX2 (person and place), pt is confused at time, pt has hard of hearing, RN has reported to dr about pt's constipation,new order receved, pt has medication and one time fleet enema , pt has large bm at 1600pm, pt needs help with meals, RN has update pt's condition to pt's daughter.
[2019-01-07 19:42] VITALS: BP 123/77
[2019-01-08 04:52] VITALS: BP 122/69
[2019-01-08 05:22] LABS: HEMATOCRIT 28.5 % (42.0-52.0); HEMOGLOBIN 9.4 gm/dL (14.0-18.0); MCH 28.8 pg (26.0-34.0); MCHC 33.1 g/dL (28.0-37.0); MCV 86.9 fL (80.0-100.0); RBC 3.28 mil/uL (4.50-6.00); RDW 14.4 % (10.5-14.5); WBC 8.5 thou/uL (4.0-11.0)
[2019-01-08 05:43] LABS: CALCIUM 9.2 mg/dL (8.5-10.1); CREATININE 1.5 mg/dL (0.7-1.3); MAGNESIUM 1.7 mg/dL (1.8-2.4); POTASSIUM 3.8 mmol/L (3.5-5.1)
--- NOTE | 2019-01-08 06:00 | NUR ---
PATIENT IS ALERT AND ORIENTED TO SELF SITUATION AND PLACE. PATIENT IS [place]. PATIENT IS Q2TURN AND INCONTIENT. PATIENT HAS A ETIENNE. PATIENT IS ROOM AIR. PATIENT IS SR JUNCTIONAL. PATIENT IS PENDING DC AWAITING MEDICARE DECISION. RESTING COMFORTABLY IN BED.WCM. PATIENT IS PROGRESSING TO GOALS.
[2019-01-08 08:48] VITALS: BP 138/86
--- NOTE | 2019-01-08 10:14 | NUR ---
ON-GOING ASSESSMENT: CM HEARD FROM [facility] AND THEY AGREE WITH DISCHARGE AND LCD WILL BE 01/07. CM NOTIFIED PATIENTS DAUGHTER PRISCILA WHO STATES THEY ALSO NOTIFIED HER. CM AND CM DIRECTOR REACHED OUT TO PATIENT AND SHE IS OK WITH PATIENT DISCHARGING TODAY TO [facility]. CM NOTIFIED ADMISSIONS AT [facility] AND SPOKE WITH JONAH. JONAH ARRANGED TRANSPORTATION FOR 1330, CM NOTIFIED BEDSIDE RN WELL PROVIDED WITH THE NUMBER FOR REPORT. CM ALSO NOTIFIED PATIENTS DAUGHTER. DAUGHTER WANTS TO MAKE SURE PATIENT LEAVES WITH HIS HEARING DEVICE/HEARING AIDES AND CM NOTIFIED BEDSIDE RN. CHART COPY WAS ORDERED AND CM REQUESTED SPOUT TENDER UPDATE IT. CM FAXED DISCHARGE PAPERWORK TO FACILITY AND CONFIRMED THEY RECEIVED IT. PT REPORTS NO FURTHER QUESTIONS FROM CM AT THIS TIME.
[2019-01-08 11:19] VITALS: BP 138/86
--- NOTE | 2019-01-08 11:19 | NUR ---
WOUND CARE F/U wound care to sacrum done earlier this am by staff developer, area healing, less reddness , less drainage, encouraged pt to off load more and stay off sacrum. cooperative, verbal understanding recommendations; cont same tx
[2019-01-08] MEDS ORDERED: FLOMAX0.4 MG PO (12:31)
== END 2019-01-08 13:59 | DRG 177 ==
LOC: ER 16:15 → 3W 21:39 → EROBS 21:39 → 3W 22:51
PROVIDERS: Emergency Medicine; Internal Medicine; Nurse Practitioner; Nurse Practitioner Family; ADMIT Hospitalist
PROC: 02HV33Z Insertion of Infusion Device into Superior Vena Cava, Percutaneous Approach (ICD-10-PCS; principal; 2019-01-02)
DX: J69.0 Pneumonitis due to inhalation of food and vomit (principal); G92 Toxic encephalopathy; N17.9 Acute kidney failure, unspecified; G45.9 Transient cerebral ischemic attack, unspecified; I50.40 Unspecified combined systolic (congestive) and diastolic (congestive) heart failure; G95.89 Other specified diseases of spinal cord; E86.0 Dehydration; L89.159 Pressure ulcer of sacral region, unspecified stage; E78.00 Pure hypercholesterolemia, unspecified; J44.9 Chronic obstructive pulmonary disease, unspecified; M19.90 Unspecified osteoarthritis, unspecified site; G62.9 Polyneuropathy, unspecified; Z96.651 Presence of right artificial knee joint; J45.909 Unspecified asthma, uncomplicated; K59.00 Constipation, unspecified; E03.9 Hypothyroidism, unspecified; I11.0 Hypertensive heart disease with heart failure; N40.0 Benign prostatic hyperplasia without lower urinary tract symptoms; F32.9 Major depressive disorder, single episode, unspecified; M48.02 Spinal stenosis, cervical region; K21.9 Gastro-esophageal reflux disease without esophagitis; E78.5 Hyperlipidemia, unspecified; G89.29 Other chronic pain; Z66 Do not resuscitate; R13.19 Other dysphagia; Z86.73 Personal history of transient ischemic attack (TIA), and cerebral infarction without residual deficits; Z88.0 Allergy status to penicillin; Z88.8 Allergy status to other drugs, medicaments and biological substances
CPT/HCPCS: 10879